=== PATIENT | female | born 1950 | race Caucasian/White ===

== ENCOUNTER 2023-09-29 11:54 | Inpatient (IN) | payer MEDICARE, SELFPAY ==
--- NOTE | ~2023-09-29 | XR_ITS ---
EXAMINATION: XR HIP, LEFT WITH AP PELVIS CLINICAL INFORMATION: Left hip pain COMPARISON: None available. TECHNIQUE: Two views of the left hip. AP view of the pelvis FINDINGS: Femoral heads are well-seated in the respected acetabula. Hip joint spaces are preserved. No evidence of subarticular sclerosis and cystic changes. Symphysis pubis is intact. Sacroiliac joints are unremarkable. No suspicious lytic or blastic osseous lesions are seen. There is no evidence of acute fracture or dislocation in the pelvis and left hip. A 4.3 cm large amorphous calcification is noted in the upper pelvis, to the right of the midline most likely representing calcified fibroid. Lower lumbar spondylosis. XR/XR hip LT w PEL1V IMPRESSION: There is no evidence of acute fracture or dislocation in the pelvis and left hip. No significant degenerative/arthritic changes are noted at the hip joints.
[2023-09-29] MEDS: OLANZapine ODT 10 MG TAB.RAPDIS 20 MG TRANSLINGU (12:25)
[2023-09-29] MEDS: LORazepam 2 MG/ML VIAL IM (12:47)
[2023-09-29 12:50] VITALS: BP 127/101; PULSE 114; RESP 28; TEMP 36.5; O2SAT 99
[2023-09-29 13:05] VITALS: BP 108/82; PULSE 75; RESP 24; TEMP 2.4; TEMP 36.4; O2SAT 97
[2023-09-29 13:20] VITALS: BP 108/64; PULSE 60; RESP 30; TEMP 36.3; O2SAT 97
[2023-09-29 13:35] VITALS: BP 115/58; PULSE 62; RESP 36; TEMP 36.2; O2SAT 97
--- NOTE | 2023-09-29 13:58 | HO.PM.IMCN ---
History of Present Illness Data of Consult Service Date: 09/29/23 Requesting physician: Homer Hough Primary Care Provider: Keyana YADAV Reason for consult: medical H&P 73 year old female with history of htn, hld admitted to [facility] from [facility] ED with consult placed to hospitalist service for medical H&P. Pt seen in exam room with nursing staff. She is noted to be quite aggitated, trashing and disoriented. She is not answering questions. While in the ED, work up was performed to rule out medical causes of acute delerium. Head ct negative for acute intracranial abnormalality, CTA head/neck negative for LVO or hemodynamically significant stenosis> CXr negative for focal consolidation. EKG shows sinus tach, rate 103, with incomplete RBBB, non specific t wave abnormality and borderline qtc at 490. Multiple UA collections negative for infection. VBG negative for any hypercapnia that could be contributing to ams. Renal function and lytes normal. Mild leukocytosis 11 but no apparent source of infection. There have been no fevers, chills, nausea, vomiting, diarrhea reported. Per staff she was recently at assisted living where medications changes did take place including increase in zoloft dose and discontinuation of metoprolol due to bradycardia. Review of Systems Review of Systems: Yes Unobtainable due to mental status PMFSH Medical History (Updated 09/29/23 @ 14:07 by DESI Rosenbaum) HLD (hyperlipidemia) HTN (hypertension) Social History Advance Directives: No Advance Directives Information Provided: No Meds Allergies Allergy/AdvReac Type Severity Reaction Status Date / Time Unable to Assess Allergy Unverified 09/29/23 12:17 Active Medications: Current Medications Acetaminophen (Acetaminophen 325 Mg Tablet) 650 mg PO Q6H PRN PRN Reason: Headache/Pain Mild Scale (1-3) Al Hydroxide/Mg Hydroxide (Magnesium Hydrox/Alum Hydrox 30 Ml Oral.Susp) 30 ml PO Q6H PRN PRN Reason: Heartburn/Nausea Hydroxyzine HCl (Hydroxyzine Hcl 25 Mg Tablet) 25 mg PO Q6H PRN PRN Reason: Anxiety Magnesium Hydroxide (Milk Of Magnesia 30 Ml Oral.Susp) 30 ml PO DAILY PRN PRN Reason: Constipation Trazodone HCl (Trazodone Hcl 50 Mg Tablet) 50 mg PO BEDTIME MRX1 PRN PRN Reason: Insomnia Physical Exam Vital Signs and Narrative: Vital Signs: Last Vital Signs Temp 97.7 F 09/29/23 12:50 Pulse 114 H 09/29/23 12:50 Resp 28 H 09/29/23 12:50 BP 127/101 H 09/29/23 12:50 Pulse Ox 99 09/29/23 12:50 O2 Del Method Room Air 09/29/23 12:50 Constitutional - Awake and Alert, significant aggitation Eyes - PERRLA Cardiovascular - S1S2, RRR, No edema Respiratory - Normal lung expansion, CTA bilaterally Gastrointestinal - soft, ND; No rebound or guarding Extremities - no calf swelling Skin - Warm/Dry Neurological - Alert & disoriented, aggitated. Unable to follow commands or participate in further neuro exam Unable to complete physical examination due to patient agitation/aggression Assessment and Plan (1) Routine medical exam: Status: Acute Plan 73 year old female with history of htn, hld admitted to [facility] from [facility] ED with consult placed to hospitalist service for medical H&P. #Aggitation/psychosis -Reviewed ED records. There does not appear to be any evidence of infection, metabolic disturbance that would be contributing to any reversible medical condition that would account for patient's mental status -home meds reflect donepazil, has degree of underlying dementia -plan per psychiatry #HTN -metoprolol recently discontinued due to bradycardia -blood pressure elevated likely due to acute psychosis/agitation -if blood pressure remains elevated >140/90, recommend initiating amlodipine 5mg daily ED records reviewed. Unable to complete physical examination due to patient agitation. Thank you for allowing me to participate in this consult. Signing off at this time. Please do not hesitate to call for further questions or for any acute medical questions/concerns.
--- NOTE | 2023-09-29 15:22 | PC.ADMIT ---
Addendum entered by Keyana Lackey RN 09/29/23 19:11: Patient is 73 years old. Original Note: 74 year old white female was admitted to room S1 176 from [facility] via stretcher at 1210 today for Dementia with Behavioral Disturbances per 12b. On arrival she was nonsensical, agitated, striking out at staff, kicking and uncooperative. She was picking at her skin. She was offered foods, fluids and toileting. We put on soft music. She took Zyprexa Zydis 20mg PO x1 per order of Dr. Hough but spit out the Ativan and was given it as a chemical restraint 2mg IM at 1247 per order. She was held for one minute during the restraint administration. Her vitals were 127/101, 114,28,36.5 and O2 Sat 99% on room air. She is oriented to person only at times. Her vital remained stable. She continued to have auditory and visual hallucinations throughout the admission process and was unable to answer any questions correctly. We were unable to weigh her or get information, consent for the Flu vaccine,if the patient smoked, has smoked and or vaped in the past. She refused to stand or transfer to a wheel chair, so she was transferred to the bed with a 2 person assist. She is unable to make her needs known. Medications verified with Dr. Hough and patient was seen by hospitalist Susan WEEKS. She is asleep in bed at this time.
--- NOTE | 2023-09-29 16:28 | PC.NURSE ---
Attempted to reach pt's brother Wallace Simms ( [facility] [phone]) and left VM asking he call us back on S1
--- NOTE | 2023-09-29 16:53 | PCS.ADM ---
Addendum entered by Rocio Russo RN 09/29/23 18:33: Nael was notified of Ativan 2 mg IM administered due to extreme agitation. He was able to inform TW of some of her meal/beverage preferences. He's been given the phone number to S1 and will check in with pt status tomorrow Original Note: TW spoke with pt's brother Nael Simms at [phone]) who is one of her HCP and primary emergency contact. He was updated about her transfer here to [facility], overall status, and need for IM medication for restraint due to increased agitation, combative.
--- NOTE | 2023-09-29 17:58 | PC.NURSE ---
Patient's brother Nael stated she likes apple juice and chocolate milk, and medication crushed up in ice cream. She should wear her top dentures when eating which are in her belongings. Her bottom dentures were misplaced at a previous facility.
--- NOTE | 2023-09-30 06:41 | P.HPPS_ITS ---
HPI Date of Service: 09/30/23 Chief Complaint: F03.90 Dementia unspecified F41.9 Unspecified anxi Sources of Information: patient interviewed, chart reviewed and crisis/core team assessment reviewed HPI Subjective Notes: [place] Warning and Section 12B Narrative: The patient is a 73-year-old female transferred from [facility] for continuation of care. According to the crisis assessment, the patient was brought from her home to the emergency room of [facility] since she was hypotensive. The patient carries a diagnosis of dementia and hypertension and she was on metoprolol at certain point her pulse was below 45 and an accidental overdose of metoprolol was suspected. She was initially medically admitted, medically cleared and assessed by crisis since the patient was confused with episodes of agitation. She was presented to our team and transferred here for continuation of care. While we did the doctor to doctor communication, the doctor of [facility] reported that Psychiatry was involved in that facility and they suggested Seroquel 25 mg p.o. t.i.d. to target psychosis and restlessness and p.r.n. Zyprexa. Metoprolol was discontinued. The patient was transferred to this facility by ambulance and on admission the patient was severely confused agitated unable to provide any details and refusing to cooperate. It needed 6 staff members to transfer her to the unit. The patient was very agitated she needed to be chemically restrain with Zyprexa p.o. and Ativan IM. The patient was a very poor historian unable to provide any details confused. The initial medical team assessed her and he was medically cleared. We will try to gather more collateral information since the patient is a very poor historian unable to provide any details. We kept her on Seroquel 25 p.o. t.i.d. and Zyprexa Zydis p.r.n. agitation. Past Psychiatric History: Unknown apparently the patient carries a diagnosis of dementia no evidence of prior psychiatric admissions. Medical Evaluation Reviewed: Yes [facility] Medical History HLD (hyperlipidemia) HTN (hypertension) Family History: Unknown Social History: Unknown, according to the crisis assessment there was no information regarding her social environment. Substance History: Unknown Trauma History: Unknown Diagnostics Vital Signs (24Hr): Vital Signs - 24 hr 09/29/23 12:50 09/29/23 13:05 Temperature 97.7 F 36.4 F L Pulse Rate 114 H 75 Respiratory Rate 28 H 24 H Blood Pressure 127/101 H 108/82 Pulse Oximetry 99 97 Oxygen Delivery Method Room Air Room Air Meds/Allergies Meds Home Medications Medication Instructions Recorded Confirmed Type aspirin 81 mg PO 1XD 09/29/23 09/29/23 History Allergies Allergies Allergy/AdvReac Type Severity Reaction Status Date / Time Unable to Assess Allergy Unverified 09/29/23 12:17 Mental Status Exam Mental Status Exam Patient Appearance: Appropriate and Unkempt (Wearing a diaper with hospital attire.) Patient Orientation: Person Level of Consciousness: Restless and Inappropriate Patient Behavior: Guarded, Aggressive and Restless Mood Description: Hostile Affect Description: Labile Patient Cognition Impaired: Yes Ability to Follow Directions: Poor Speech Pattern: Impoverished and Monotone Hallucinations: None Delusions: Ideas of Reference Thought Process: Incoherent, Illogical and Distracted Thought Content: positive for Poverty of Content, positive for Loose Associations and positive for Thought Blocking Judgement: Poor Assessment & Plan Assessment & Plan (1) Dementia: Status: Acute Code(s): F03.90 - Unspecified dementia, unspecified severity, without behavioral disturbance, psychotic disturbance, mood disturbance, and anxiety Plan The patient is an elderly female with a past history of high blood pressure who was presented to another hospital for hypotension, initially medically cleared and transferring to this facility due to agitation and inability to function in the community. She is a very poor historian unable to provide any details and she needed to be chemically restrain on admission. Plan 1. Gather collateral information. 2. One-to-one observation due to agitation and change in mental status. 3. Continue Seroquel 25 p.o. t.i.d.. 4. Keep Zyprexa Zydis p.r.n. agitation. 5. Continue medical workout. Patient educated on: diagnosis, therapeutic strategies and medical condition Reason for continued inpatient stay Substantial Risk for: inability to function, rapid decompensation and med/psych decompensation Statement Statement: I have reviewed the history and physical and performed a pertinent examination on my patient. No changes have occurred unless specified. If the History and Physical was not performed prior to admission, the Hospitalist's service will be consulted for completing the admission physical. Time Spent With Patient Time: Total time managing care of this patient today _45___ minutes.
[2023-09-30 08:58] VITALS: BP 133/69; PULSE 55; RESP 17; TEMP 36.3; O2SAT 98
[2023-09-30] MEDS: QUEtiapine Fumarate 25 MG TABLET PO ×3 (09:01→21:28)
[2023-09-30] MEDS: OLANZapine ODT 10 MG TAB.RAPDIS 5 MG TRANSLINGU ×2 (09:12→21:28)
[2023-09-30 12:27] LABS: Alanine Aminotransferase 14 U/L (0-31); Albumin Level 4.3 g/dL (3.5-5.0); Alkaline Phosphatase 99 U/L (39-117); Anion Gap 14 (12-20); Aspartate Amino Transferase 20 U/L (5-31); Bilirubin Total 0.6 mg/dL (0.0-1.0); Blood Urea Nitrogen 32 mg/dL (9-16); Carbon Dioxide 20 mmol/L (22-29); Chloride 111 mmol/L (96-108); Cholesterol 253 mg/dL (<200); Estimated Glomerular Filt Rate > 60; Glucose Fasting 82 mg/dL (60-99); HDL Cholesterol 46 mg/dL (>40); LDL Cholesterol Calculated 184 mg/dL (<100); Potassium 4.3 mmol/L (3.3-5.1); Sodium 141 mmol/L (135-145); Total Protein 7.7 g/dL (6.5-8.0); Triglycerides 116 mg/dL (<150)
--- NOTE | 2023-09-30 12:33 | PC.NURSE ---
Pt was full assist with lunch. Still agitated and confused, not able to follow directions or answer appropriately. She declined dentures and pushed staff away. She agreed to have a few bites of applesauce and mac and cheese. Will update diet to pureed. According to pt's brother Nael, while Pat was in assisted living facility, she was mobile and eating/drinking all sorts of things, and when her mental status declined was taken to [facility] and she hasn't returned to her baseline pre hospital admission. Noticed that Pat seems to have pain upon touch to BLE and left leg noted to be internally rotated. Notified Dr Hough of this and awaiting response. Per brother Nael, pt has no known hx of hip fractures.
[2023-09-30] MEDS: LORazepam 1 MG TABLET 2 MG PO (14:19)
--- NOTE | 2023-09-30 14:42 | PC.NURSE ---
Patient remains nonsensical , hallucinating, fearful and tearful this morning. She flinches when we touch her left hip/leg during care. Her left leg is internally rotated, no redness or swelling. When patient is repositioned she winces in pain. She guards her left side. Son Nael updated and he said that she does not have any history as far as he knows about any hip problems. Dr. Hough updated and new orders obtained for X ray of left hip and pelvis and to give Ativan 2mg PO prior to X Ray for anxiety. Medication given.
--- NOTE | 2023-09-30 16:01 | PC.NURSE ---
X rays left hip and pelvis taken, results pending.
--- NOTE | 2023-09-30 16:20 | PC.NURSE ---
Pt medicated with ativan 2 mg orally once prior to having her left hip xray. She is more calm and less agitated. Speech is more clear that yesterday but still confused and nonsensical. Providing pericare and nourishment for her as she is bed bound at this time.
--- NOTE | 2023-09-30 16:41 | PC.NURSE ---
Left hip and pelvic X rays were negative.
--- NOTE | 2023-09-30 16:51 | PC.NURSE ---
Patient would not allow staff to put in her dentures and had difficulty eating regular food. She spit out ground up turkey meat loaf and mac and cheese. Dr Hough updated and diet changed to puree for the time being.
[2023-09-30 18:00] VITALS: BP 116/72; PULSE 72; RESP 18; TEMP 36.6; O2SAT 72
[2023-09-30] MEDS: traZODone HCL 50 MG TABLET PO (21:27)
[2023-09-30] MEDS: hydrOXYzine HCL 25 MG TABLET PO (21:28)
[2023-10-01 06:00] VITALS: RESP 20
--- NOTE | 2023-10-01 09:16 | PC.NURSE ---
Patient's brother/HCP, Nael Simms, phone number is [phone].
--- NOTE | 2023-10-01 14:52 | PM.EVENT ---
Event Note Date of Service: 10/01/23 Event Note: Pt remains aggitated, disoriented, aggressive. Has not been eating or drinking. Concern for cyanosis and hypoxia per nursing. Pt is not cyanotic on my exam. Radial pulses weak but palpable. Difficult to get accurate pulse ox- briefly reading 93% then 89% then not reading. Suspect hypoperfusion due to poor PO intake. Do not suspect hypoxia. No cyanosis. No increased WOB. Respirations are even and unlabored. Extremities are warm. Mucosa dry. Suspect terminal dementia after discussion with psychiatrist. However, pt is full code with family coming to facility tomorrow to discuss code status/MOLST. Will transfer to medical floor for full work up to rule out reversible causes of delerium/FTT prior to advanced care planning discussion with family tomorrow. Discussed with psychiatrist who will initiate discharge process. Time Spent With Patient Time: Total time managing care of this patient today ____ minutes.
--- NOTE | 2023-10-01 15:00 | PM.PSYDC ---
DS: Providers Provider Date of Service: 10/01/23 Date of admission: 09/29/23 11:54 Date of discharge: 10/01/23 Primary care physician: Keyana Laguerre NP Consults: 09/29/23 13:05 Consult to Hospitalist Routine Comment: Consulting Provider: Hospitalist Reason For Exam: Direct admission 10/01/23 12:30 Consult to Hospitalist Stat Comment: Consulting Provider: Hospitalist Reason For Exam: Change of MS, looks terminal agitation DS: Diagnosis Discharge Diagnosis (1) Dementia: Status: Acute DS: Medications Discharge Medications Home Medications: Home Medications Medication Instructions Recorded Confirmed aspirin 81 mg PO 1XD 09/29/23 09/29/23 Mental Status Exam Mental Status Exam Patient Appearance: Unkempt and Bizarre Patient Orientation: Person Level of Consciousness: Awake and Restless Patient Behavior: Guarded, Passive and Belligerent Mood Description: Withdrawn Affect Description: Labile Patient Cognition Impaired: Yes Ability to Follow Directions: Poor Speech Pattern: Impoverished and Monotone Hallucinations: Auditory Delusions: Paranoid Ideation and Ideas of Reference Thought Process: Illogical Thought Content: positive for [place] and positive for Loose Associations Judgement: Poor Data Data Completed and Pending Completed studies during hospitalization [Text1]: 09/30/23 07:14 Hold Purple Top SEE NOTE Sodium 141 Potassium 4.3 Chloride 111 H Carbon Dioxide 20 L Anion Gap 14 BUN 32 H Creatinine 0.77 Estim Creat Clear Calc TNP Estimated GFR > 60 Fasting Glucose 82 Calcium 10.0 Total Bilirubin 0.6 AST 20 ALT 14 Alkaline Phosphatase 99 Total Protein 7.7 Albumin 4.3 Triglycerides 116 Cholesterol 253 H LDL Cholesterol, Calc 184 H HDL Cholesterol 46 Imaging Diagnostic Imaging Impressions Hip/Pelvis X-Ray 09/30/23 15:15 IMPRESSION: There is no evidence of acute fracture or dislocation in the pelvis and left hip. No significant degenerative/arthritic changes are noted at the hip joints. DS: Summary Hospital Course Hospital Course: The patient is a 73-year-old female with a past history of dementia was brought from [facility] after being medically cleared since she was bradycardic. On admission the patient came very agitated, completely nonsensical unable to be redirected that need to be chemically restrained to be transferred from the stretcher to her bed. On admission, we consulted Medicine and checked on her. The patient had being having very poor p.o. intake while she was in the unit she got more agitated and anxious and they were pleased that she was desaturating. We consulted Medicine and they decided to transfer her to Medicine for a fully workout. At this point the patient is full code as per the desires of her family. The medical team requested the transferred to Medicine for a full workout. Time spent discussing smoking cessation with patient: 3 to 10 minutes Status at Discharge Cognitive/behavioral status at discharge: Cognition very impaired Functional status at discharge: bed bound Overall status at discharge: patient is not back to baseline Time Spent with Patient Time attestation: Total time managing care of this patient today _30___ minutes. Time spent: Less than 30 minutes Discharge Plan Discharge Anticipated Discharge Date/Time: 10/01/23 15:03 Patient Disposition: [facility] Hospital Discharge Diagnosis: Delirium Dementia Referrals: Keyana Laguerre, [employer] [Primary Care Provider] - 1 Week Discharge Medications: Discontinued aspirin 81 mg PO 1XD Discharge Orders: Discharge Order (Routine); Ordered 10/01/23 Ordered By: Homer Hough Diet: Advance to usual diet Activity on Discharge: As tolerated Stand Alone Forms: Patient Portal Discharge page Care Plan Goals: Care plan goals have not been achieved since the patient had been transferred to Medicine Health Concerns: Transferred to the medical floor. Plan of Treatment: Continue treatment on the medical floor when she is medically cleared she would be transfer back to Psychiatry. Assessment: The patient is an elderly female with a past history of dementia and bradycardia transferred from [facility] for continuation of care. The patient decompensated medically with poor p.o. intake that his rotated very agitated transferred to Medicine for medical treatment.
== END 2023-10-01 17:58 | disposition short-term general hospital (02) | DRG 884 ==
PROVIDERS: Admitting Provider Psychiatry & Neurology Psychiatry; PCP Nurse Practitioner Family; Visit Provider Psychiatry & Neurology Psychiatry
DX: F03.911 Unspecified dementia, unspecified severity, with agitation (principal); F05 Delirium due to known physiological condition; E78.5 Hyperlipidemia, unspecified; I10 Essential (primary) hypertension; Z79.899 Other long term (current) drug therapy
CPT/HCPCS: 36415; 73502; 80053; 80061; J2060

== ENCOUNTER → 2023-09-29 11:54 | Outpatient (BNV) | payer MEDICARE, SELFPAY | PROVIDERS: Admitting Provider Psychiatry & Neurology Psychiatry; Visit Provider Psychiatry & Neurology Psychiatry | DX: F03.90 Unspecified dementia, unspecified severity, without behavioral disturbance, psychotic disturbance, mood disturbance, and anxiety (principal) | CPT/HCPCS: 99222; 99238 ==

== ENCOUNTER → 2023-09-29 11:54 | Outpatient (BNV) | payer MEDICARE, SELFPAY | PROVIDERS: Admitting Provider Psychiatry & Neurology Psychiatry; Visit Provider Physician Assistant | DX: Z02.2 Encounter for examination for admission to residential institution (principal) | CPT/HCPCS: 99429; 99499 ==

== ENCOUNTER 2023-10-01 18:01 | Inpatient (IN) | payer MEDICARE, SELFPAY ==
--- NOTE | ~2023-10-01 | CT_ITS ---
EXAMINATION: CT ANGIOGRAM OF THE CHEST WITH AND WITHOUT CONTRAST (CT PULMONARY ANGIOGRAM FOR PE) CLINICAL INFORMATION: Reason for Exam hypoxia, encephalopathy. r/o pe/pneumonia COMPARISON: None available. TECHNIQUE: Prior to contrast administration, noncontrast localization images were obtained. Subsequently, multidetector volumetric imaging was performed from the thoracic inlet to below the diaphragms following the administration of 25 mL Omnipaque 350 intravenous contrast. No contrast reaction reported Sagittal, coronal, and MIP oblique sagittal reformatted images were obtained on the CT workstation, uploaded to PACS, and reviewed. This CT examination was performed using dose optimization techniques as appropriate, variously including the following: *Automated exposure control *Adjustment of mA and/or kV according to patient size (this includes techniques or standardized protocols for targeted exams where dose is matched to indication/reason for exam; i.e. extremities or head) *Use of iterative reconstruction technique Total exam dose-length product 227 mGy-cm FINDINGS: QUALITY OF STUDY/CONTRAST BOLUS: Satisfactory. PULMONARY ARTERIES: No pulmonary emboli. THORACIC AORTA: No aneurysm. LUNG: Evaluation of the lungs is limited due to respiratory motion artifact. No focal consolidation, nodules or masses. PLEURA: No pleural effusion or pneumothorax. MEDIASTINUM: Lightly enlarged heart size. No pericardial effusion. No hilar or mediastinal lymphadenopathy. No evidence of septal bowing or right heart strain. CORONARY ARTERY CALCIFICATION: Mild CHEST WALL/AXILLA: No axillary or internal mammary lymphadenopathy. OSSEOUS STRUCTURES: Degenerative changes of the spine and shoulders. UPPER ABDOMEN: No reflux of contrast into the hepatic veins to suggest elevated right heart pressures. CT/CT angio chest PE protocol IMPRESSION: No evidence of pulmonary embolus. VTE: negative
--- NOTE | ~2023-10-01 | CT_ITS ---
EXAMINATION: CT ABDOMEN AND PELVIS WITHOUT CONTRAST CLINICAL INFORMATION: Failure to thrive, encephalopathy and anorexia COMPARISON: None available. TECHNIQUE: Multidetector volumetric imaging was performed from the superior aspect of the liver through the pubic symphysis. Sagittal and coronal reformatted images were obtained on the technologist's workstation. This CT examination was performed using dose optimization techniques as appropriate, variously including the following: *Automated exposure control *Adjustment of mA and/or kV according to patient size (this includes techniques or standardized protocols for targeted exams where dose is matched to indication/reason for exam; i.e. extremities or head) *Use of iterative reconstruction technique DLP: 521 mGy-cm FINDINGS: LIVER, GALLBLADDER, AND BILIARY TREE: The liver is normal in size, shape, and attenuation. No focal hepatic lesion or biliary ductal dilatation is present. The gallbladder is unremarkable with no evidence of radiopaque gallstones, gallbladder wall thickening, or obvious pericholecystic inflammatory changes. PANCREAS: Unremarkable. SPLEEN: Unremarkable. ADRENAL GLANDS: Unremarkable. KIDNEYS AND URETERS: The kidneys are normal in size, shape, and attenuation. No hydronephrosis, hydroureter. Small bilateral nonobstructing renal stones. No perinephric stranding. BLADDER: Unremarkable. GASTROINTESTINAL TRACT: Mild constipation diverticulosis. The small and large bowel are otherwise unremarkable. There may be mild wall thickening of the proximal stomach. The appendix is unremarkable. ABDOMINAL WALL: No significant hernia is appreciated. LYMPH NODES: Normal. VASCULAR: Unremarkable. PELVIC VISCERA: Large calcified fibroid in the uterus. OSSEOUS STRUCTURES: Degenerative changes of the spine. CT/CT abdomen pelvis wo IV con IMPRESSION: No acute findings. Mild constipation and diverticulosis. Large uterine calcification probably representing a fibroid. Small nonobstructing bilateral renal stones. Question mild fold thickening of the proximal stomach. Fleischner guidelines were followed.
--- NOTE | ~2023-10-01 | CT_ITS ---
EXAMINATION: CT head/brain wo IV con CLINICAL INFORMATION: Reason for Exam encephalopathy, ftt COMPARISON: None. TECHNIQUE: Contiguous axial imaging was performed from the skull base to vertex without intravenous contrast. Sagittal and coronal reformatted images were obtained. This CT examination was performed using dose optimization techniques as appropriate, variously including the following: * Automated exposure control * Adjustment of mA and/or kV according to patient size (this includes techniques or standardized protocols for targeted exams where dose is matched to indication/reason for exam; i.e. extremities or head) Use of iterative reconstruction technique DLP: 1904.23 mGy-cm FINDINGS: Motion degraded examination. No acute osseous or soft tissue abnormality. The mastoid air cells and visualized portions of the paranasal sinuses are well aerated. There is no evidence of acute intracranial hemorrhage or territorial infarction. No abnormal mass effect or midline shift is seen. Mathias to white matter differentiation is well preserved. No extra-axial fluid collections are identified. No hydrocephalus. Proportional prominence of the ventricles and sulcal spaces is consistent with mild volume loss. Patchy periventricular and deep white matter hypoattenuation is consistent with mild small vessel ischemic changes. CT/CT head/brain wo IV con IMPRESSION: Motion degraded examination. Within limitations of motion artifact, no evidence of acute intracranial abnormality including hemorrhage, mass effect, hydrocephalus, or acute territorial edematous infarction. If there is persistent clinical concern for acute [employer] pathology, consider repeat CT or MRI.
--- NOTE | 2023-10-01 17:04 | P.HPHOSP_ITS ---
History of Present Illness Date of Service: 10/01/23 Attending physician on admission: Mitchell Mccord Chief Complaint: ftt, encephalopathy 73 year old female with history of htn, hld admitted to [facility] from [facility] ED due to aggitation and delerium. While in the ED, work up was performed to rule out medical causes of acute delerium. Head ct negative for acute intracranial abnormalality, CTA head/neck negative for LVO or hemodynamically significant stenosis> CXr negative for focal consolidation. EKG shows sinus tach, rate 103, with incomplete RBBB, non specific t wave abnormality and borderline qtc at 490. Multiple UA collections negative for infection. VBG negative for any hypercapnia that could be contributing to ams. Renal function and lytes normal. Since arrival to the unit, patient has continued to decline. Has not been eating or drinking per nursing report. Has been refusing medications. Has required chemical restraint due to agitation and aggression towards staff. Seen in consult by this provider on 09/28 and again today without any change in clinical presentation. Vital signs since arrival were significant for intermittent tachypnea, though has not been tachypneic in over 24 hours and breathing on exam is noted to be unlabored. Nursing reported hypoxia of 72% on RA last night and then this morning oximetry was not able to be accurately read. On exam briefly obtained sat of 93% then 89% but otherwise was not reading. Radial pulses noted to be weak but equal. Extremities warm. No cyanosis observed. O2 sats until yesterday evening 97%. Discussed with psychiatrist who questions terminal dementia. He does report that prior to arrival to [facility] patient was ambulatory though has had underlying dementia. She will be transferred to the medical floor for further evaluation of any reversible medical causes leading to acute delerium though again these had not been identified during [facility] evaluation and presentation has not changed, vs terminal dementia and further discussion/advanced care planning with family. Review of Systems Review of Systems: Yes Unobtainable due to mental status [facility] Medical History (Updated 10/01/23 @ 17:46 by DESI Rosenbaum) Dementia HLD (hyperlipidemia) HTN (hypertension) Social History Household Members: Other Housing: Assisted Living Facility Do you presently have visiting nurse or other home services: No Comment: PT on 1:1 Patient Tobacco Use Status: Tobacco use Unknown service: No Sexual orientation: Straight/Heterosexual Meds Allergies Allergy/AdvReac Type Severity Reaction Status Date / Time Unable to Assess Allergy Unverified 09/29/23 12:17 Active Medications: Current Medications Acetaminophen (Acetaminophen 325 Mg Tablet) 650 mg PO Q6H PRN PRN Reason: Pain, Mild (Pain Scale 1-3) Heparin Sodium (Porcine) (Heparin Sodium,Porcine 5,000 Unit/Ml Vial) 5,000 unit SUBCUT Q12H [facility] Sodium Chloride (Ns) 1,000 mls @ 100 mls/hr IVCONT .Q10H [facility] Sodium Chloride (Ns) 1,000 mls @ 999 mls/hr IV .Q1H1M [facility] Stop: 10/01/23 18:00 Ondansetron HCl (Ondansetron Hcl 4 Mg/2 Ml Vial) 4 mg IVPUSH Q8H PRN PRN Reason: Nausea and Vomiting Senna (Sennosides 8.6 Mg Tablet) 17.2 mg PO BEDTIME PRN PRN Reason: Constipation Sodium Chloride (0.9 % Sodium Chloride Flush 3 Ml Syringe) 3 ml IVFLUSH QSHIFT [facility] Physical Exam Vital Signs and Narrative: Constitutional - Awake and Alert, disoriented, aggitated/anxious appearing, attempting to hit staff Eyes - PERRLA Cardiovascular - S1S2, RRR, No edema Respiratory - Normal lung expansion, Normal respiratory effort, No respiratory distress, CTA bilaterally Gastrointestinal - soft, ND; +BS; No rebound or guarding Extremities - no calf tenderness bilaterally, no swelling Musculoskeletal - Normal inspection, normal ROM Skin - Warm/Dry Neurological - Alert & disoriented, aggitatied/anxious, unable to assess cranial nerves except PERRLA and EOMs appear to be in tact with patient's eyes tracking around room. Strength is symmetric and in tact Assessment and Plan (1) Encephalopathy: Status: Acute (2) Failure to thrive in adult: Status: Acute (3) Dementia: Status: Acute Plan 73 year old female with history of htn, hld admitted to [facility] from [facility] ED due to aggitation and delerium with work up negative for reversible medical causes of delerium. She continues to decline, not eating or drinking and continues to exhibit aggression/agitation related psychosis. 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 However, pt will be admitted to hospitalist service for further investigation into any reversible causes of acute delerium and ultiamtely advanced care planning with family if no reversible cause is identified. #Acute metabolic encephalopathy- likely related to psychosis/terminal dementia -r/o infection/metabolic derangements that could be contributing to acute aggitation/confusion -Head CT, CTA chest, CT abd/pelvis ordered. b/l hip xray negative for fracture -Check CBC, CMP, ammonia, TSH w/ reflex free t4, UA/UC with straight cath (follow 1L IV NS bolus), VBG. Will also check trop, BNP given documented hypoxia -Admit to m/s with sitter -monitor mentation #?Hypoxia -Radial pulses weak but extremities warm without any cyanosis. Suspect poor perfusion compromising peripheral pulse oximetry. On exam, oximetry briefly read as 89 and 93% but otherwise ws not recording. There is no respiratory distresss or increased work of breathing. Respirations are even and unlabored -Will keep on continuous pulse oximetry -CTA chest, trop, bnp ordered #Failure to thrive -as above. Nothing to eat or drink in 3 days. pt is full code -will give 1 L bolus IVF, then 100mls/hr -check renal function.lytes. Eval for reversible causes of delerium as above -advanced care planning discussion with family tomorrow #Unspecified advanced dementia -per psychiatry, suspects terminal dementia -continue seroquel 25mg TID and zyprexa 5mg Q4H prn for agitation -monitor mentation #Hypertension -bp reasonably controlled, not on antihypertensive agents dvt prophyalxis0 heparin full code pt requries inpt stay at [facility] 2 midnights due to ftt and encephalopathy requiring further work up for reversible causes of acute delerium vs terminal dementia and will likely require advanced care planning with family Quality Stroke Does the patient have a stroke diagnosis?: No VTE Prior VTE?: No VTE Risk Level:: Medical - moderate - high VTE Device Contraindication: Treatment Not Indicated VTE Drug Contraindication: N/A - Med Ordered
[2023-10-01] MEDS: OLANZapine 10 MG VIAL IM (18:43)
[2023-10-01 18:45] LABS: MANUAL DIFF FLAG NO
[2023-10-01 18:46] LABS: VBG HCO3 22 mmol/L (22-26); VBG pCO2 25 mmHg; VBG pH 7.55 (7.32-7.43); VBG pO2 28 mmHg
[2023-10-01 18:46] LABS: Basophils Absolute Auto 0.1 X10*3/uL (0.0-0.2); Basophils Percent Auto 0.6 % (0-2); Eosinophils Absolute Auto 0.2 X10*3/uL (0.0-0.4); Eosinophils Percent Auto 2.3 % (0-4); Hemoglobin 15.4 g/dl (12.0-16.0); Imm Gran Abs Auto 0.01 X10*3/uL (0.00-0.03); Imm Gran Pct Auto 0.1 % (0.0-0.4); Lymphocytes Absolute Auto 2.5 X10*3/uL (1.2-4.9); Lymphocytes Percent Auto 31.2 % (20-40); Mean Corpuscular HGB Conc 34.2 g/dl (31.0-35.0); Mean Corpuscular Hemoglobin 28.9 pg (27.0-33.0); Mean Corpuscular Volume 84.4 fL (80.0-98.0); Monocytes Absolute Auto 0.7 X10*3/uL (0.1-1.2); Neutrophils Absolute Auto 4.6 x10*3/uL (2.0-8.3); Neutrophils Percent Auto 56.8 % (45-73); Platelet Count 320 X10*3/uL (160-400); Red Blood Count 5.33 X10*6/uL (4.20-5.50); Red Cell Distribution Width 13.6 % (11.0-16.0); White Blood Count 8.1 X10*3/uL (4.8-10.8)
[2023-10-01] MEDS: 0.9 % Sodium Chloride 1,000 ML 999 ML IV (18:46)
[2023-10-01 18:49] VITALS: BMI 19.9
[2023-10-01 18:49] LABS: Venous Blood Gas Refer to POC result
--- NOTE | 2023-10-01 18:49 | PM.EVENT ---
Event Note Date of Service: 10/01/23 Event Note: Pt arrived to M/S very agitated, anxious, crying. Attempting to fight off staff. For patient and staff safety administered 10mg IM zyprexa with good effect to allow for collection of labs, patient comfort and safety, as well as further work up to be completed to rule out reversible medical causes of patient presentation. Discussed with patient's brother, Nael, who will be coming to the hospital from the [address] tomorrow morning. Time Spent With Patient Time: Total time managing care of this patient today ____ minutes.
[2023-10-01 18:51] VITALS: BP 170/80; PULSE 98; RESP 20; TEMP 36.2; O2SAT 95
[2023-10-01 18:56] LABS: Ammonia 17 umol/L (13-55)
[2023-10-01] MEDS: LORazepam 2 MG/ML VIAL 1 MG IVPUSH (19:02)
[2023-10-01 19:08] LABS: Alanine Aminotransferase 14 U/L (0-31); Albumin Level 4.6 g/dL (3.5-5.0); Alkaline Phosphatase 105 U/L (39-117); Anion Gap 18 (12-20); Aspartate Amino Transferase 17 U/L (5-31); Bilirubin Total 1.1 mg/dL (0.0-1.0); Blood Urea Nitrogen 34 mg/dL (9-16); Calcium 10.5 mg/dL (8.4-10.2); Carbon Dioxide 21 mmol/L (22-29); Chloride 112 mmol/L (96-108); Creatinine Clr Calc Pharmacy 57.4; Estimated Glomerular Filt Rate > 60; Glucose Random 103 mg/dL (60-115); Potassium 3.5 mmol/L (3.3-5.1); Sodium 147 mmol/L (135-145); Total Protein 8.2 g/dL (6.5-8.0)
[2023-10-01 19:10] LABS: B Type Natriuretic Peptide < 10 pg/mL (<100); Troponin-I High Sensitivity < 2.7 ng/L (<3.5-17.0)
[2023-10-01 19:22] LABS: TSH reflex Free T4 1.57 uIU/mL (0.32-4.0)
[2023-10-01] MEDS: iohexoL 350 MG/ML 100 ML INFUS..BTL IV (20:35)
[2023-10-01] MEDS: Dextrose 5 % and 0.45 % NaCl 1,000 ML 100 ML IVCONT (20:44)
--- NOTE | 2023-10-01 22:02 | PHA.MEDREC ---
Pharmacy Consult ? Medication Reconciliation Pharmacy has completed the medication reconciliation. Patient from [facility] active meds for med rec. DESI Davis aware Alanis Kat, DianelysD
[2023-10-01 22:52] LABS: Appearance Urine Cloudy; Color Urine Dark Yellow; Glucose Urine UA Negative (Negative); Leukocyte Esterase Urine Negative (Negative); Nitrite Urine Negative (Negative); Specific Gravity - Urine >= 1.030 (1.005-1.025); Urine Blood Negative (Negative); Urine Ketones 15 mg/dL (Negative); Urine Protein Negative (Neg-Trace)
[2023-10-01 23:15] VITALS: BP 140/94; PULSE 72; RESP 16; TEMP 36.4; O2SAT 95
[2023-10-02] MEDS: Dextrose 5 % and 0.45 % NaCl 1,000 ML 100 ML IVCONT ×3 (05:24→23:56)
[2023-10-02] MEDS: Heparin Sodium,Porcine 5,000 UNIT/ML VIAL 5000 UNIT SUBCUT ×2 (05:24→16:41)
[2023-10-02 06:26] LABS: MANUAL DIFF FLAG NO
[2023-10-02 06:34] LABS: Basophils Percent Auto 0.8 % (0-2); Eosinophils Absolute Auto 0.2 X10*3/uL (0.0-0.4); Eosinophils Percent Auto 4.8 % (0-4); Hematocrit 38.7 % (37.0-47.0); Hemoglobin 12.6 g/dl (12.0-16.0); Imm Gran Abs Auto 0.01 X10*3/uL (0.00-0.03); Imm Gran Pct Auto 0.2 % (0.0-0.4); Lymphocytes Absolute Auto 1.6 X10*3/uL (1.2-4.9); Lymphocytes Percent Auto 32.3 % (20-40); Mean Corpuscular HGB Conc 32.6 g/dl (31.0-35.0); Mean Corpuscular Hemoglobin 28.9 pg (27.0-33.0); Mean Corpuscular Volume 88.8 fL (80.0-98.0); Monocytes Absolute Auto 0.5 X10*3/uL (0.1-1.2); Monocytes Percent Auto 9.7 % (2-11); Neutrophils Absolute Auto 2.6 x10*3/uL (2.0-8.3); Neutrophils Percent Auto 52.2 % (45-73); Platelet Count 260 X10*3/uL (160-400); Red Blood Count 4.36 X10*6/uL (4.20-5.50); Red Cell Distribution Width 13.7 % (11.0-16.0)
[2023-10-02 07:03] LABS: Anion Gap 12 (12-20); Blood Urea Nitrogen 26 mg/dL (9-16); Carbon Dioxide 22 mmol/L (22-29); Chloride 113 mmol/L (96-108); Creatinine Clr Calc Pharmacy 61.5; Estimated Glomerular Filt Rate > 60; Glucose Random 115 mg/dL (60-115); Potassium 3.6 mmol/L (3.3-5.1); Sodium 143 mmol/L (135-145)
[2023-10-02 07:15] VITALS: BP 117/69; PULSE 52; RESP 14; TEMP 36; O2SAT 94
[2023-10-02 07:16] LABS: Calcium 8.7 mg/dL (8.4-10.2)
--- NOTE | 2023-10-02 11:38 | MHC.CM.PN ---
Addendum entered by Shavon Richardson 10/02/23 13:57: FAMILY WOULD LIKE REFERRALS CLOSER TO [place] AND FIRST CHOICE IS [facility] IN [place]. Original Note: IMM DELIVERED TO HCP/BROTHER AMELIA AT BEDSIDE. PT UNABLE TO SIGN DUE TO COGNITIVE LOSS/AGITATION. PT IS FROM GP UNIT AT [facility] BUT RESIDES IN A USP IN [place] ([facility]). HCP IS REQUESTING A LTC REFERRAL BE PLACED TO SNF'S IN THE [place]. PT WILL BE USING FUNDS . REQUEST SENT TO [facility] FOR COPY OF HCP. DP: PT WILL REQUIRE LTC AT A FACILITY IN THE [place] . WILL NEED BLS TRANSPORT. CM WILL CONTINUE TO FOLLOW FOR ANY CHANGE IN DC PLAN/NEEDS.
[2023-10-02] MEDS: cefTRIAXone sodium 1 GM in 0.9 % Sodium Chloride 50 ML IV (11:39)
[2023-10-02] MEDS: LORazepam 2 MG/ML VIAL 1 MG IVPUSH ×2 (12:12→18:36)
--- NOTE | 2023-10-02 14:28 | HO.PM.IMPN ---
Subjective Subjective Date of Service: 10/02/23 Interval History: Remains confused; improved with Zyprexa and Ativan Review of Systems Unable to obtain Physical Exam Vital Signs: Vital Signs: Last Vital Signs Temp 96.8 F 10/02/23 07:15 Pulse 52 10/02/23 07:15 Resp 14 10/02/23 07:15 BP 117/69 10/02/23 07:15 Pulse Ox 94 10/02/23 07:15 O2 Del Method Room Air 10/02/23 07:15 BMI result Body Mass Index 19.9 Const: Other: Awake mumbling incoherent Resp: Other: Clear to auscultation bilaterally no rales rhonchi or wheezes Cardio: Other: No S4; positive S1-S2; no S3 murmurs rubs or gallops GI: Other: Soft nontender nondistended normoactive bowel sounds Extrem: Other: No edema bilaterally Objective Data Active Medications Acetaminophen (Acetaminophen 325 Mg Tablet) 650 mg PO Q6H PRN PRN Reason: Pain, Mild (Pain Scale 1-3) Heparin Sodium (Porcine) (Heparin Sodium,Porcine 5,000 Unit/Ml Vial) 5,000 unit SUBCUT Q12H [facility] Last Admin: 10/02/23 05:24 Dose: 5,000 unit Documented By: NAHID Dextrose/Sodium Chloride (D51/2ns) 1,000 mls @ 100 mls/hr IVCONT .Q10H [facility] Last Admin: 10/02/23 14:13 Dose: 100 mls/hr Documented By: CARLOS Ceftriaxone Sodium 1 gm/ (Sodium Chloride) 50 mls @ 100 mls/hr IV Q24H [facility] Last Infusion: 10/02/23 12:11 Dose: Infused Documented By: CARLOS Lorazepam (Lorazepam 2 Mg/Ml Vial) 1 mg IVPUSH Q4H PRN PRN Reason: Restlessness Last Admin: 10/02/23 12:12 Dose: 1 mg Documented By: CARLOS Olanzapine (Olanzapine Odt 10 Mg Tab.Rapdis) 5 mg TRANSLINGU Q4H PRN PRN Reason: Psychosis Ondansetron HCl (Ondansetron Hcl 4 Mg/2 Ml Vial) 4 mg IVPUSH Q8H PRN PRN Reason: Nausea and Vomiting Quetiapine Fumarate (Quetiapine Fumarate 25 Mg Tablet) 25 mg PO TID [facility] Last Admin: 10/02/23 14:03 Dose: Not Given Documented By: CARLOS Non-Admin Reason: Patient Asleep Senna (Sennosides 8.6 Mg Tablet) 17.2 mg PO BEDTIME PRN PRN Reason: Constipation Sodium Chloride (0.9 % Sodium Chloride Flush 3 Ml Syringe) 3 ml IVFLUSH QSHIFT [facility] Last Admin: 10/02/23 12:31 Dose: Not Given Documented By: CARLOS Non-Admin Reason: IV Running Labs 10/02/23 05:23 10/02/23 05:23 Labs: Laboratory Results - last 24 hr 10/01/23 10/01/23 10/01/23 18:38 18:40 22:20 MCV 84.4 MCH 28.9 MCHC 34.2 RDW 13.6 Plt Count 320 MPV 10.0 Immature Gran % (Auto) 0.1 Neut % (Auto) 56.8 Lymph % (Auto) 31.2 [place] % (Auto) 9.0 Eos % (Auto) 2.3 Baso % (Auto) 0.6 Lymph # (Auto) 2.5 [place] # (Auto) 0.7 Eos # (Auto) 0.2 Baso # (Auto) 0.1 Abs Immat Gran (auto) 0.01 Absolute Neuts (auto) 4.6 Absolute Nucleated RBC 0.000 Nucleated RBC % (auto) 0.0 VBG pH 7.55 H VBG pCO2 25 VBG pO2 28 VBG HCO3 22 VBG O2 Saturation 46.0 VBG Base Excess 2.0 Anion Gap 18 Estim Creat Clear Calc 57.4 Estimated GFR > 60 Random Glucose 103 Calcium 10.5 H Total Bilirubin 1.1 H AST 17 ALT 14 Alkaline Phosphatase 105 Ammonia 17 Troponin I High Sens < 2.7 B-Natriuretic Peptide < 10 Total Protein 8.2 H Albumin 4.6 TSH 1.57 Urine Color Dark Yellow Urine Appearance Cloudy Urine pH 7.0 Ur Specific W[place]ord >= 1.030 H Urine Protein Negative Urine Glucose (UA) Negative Urine Ketones 15 Urine Blood Negative Urine Nitrite Negative Ur Leukocyte Esterase Negative 10/02/23 05:23 MCV 88.8 MCH 28.9 MCHC 32.6 RDW 13.7 Plt Count 260 MPV 10.0 Immature Gran % (Auto) 0.2 Neut % (Auto) 52.2 Lymph % (Auto) 32.3 Scre[place] % (Auto) 9.7 Eos % (Auto) 4.8 H Baso % (Auto) 0.8 Lymph # (Auto) 1.6 Screven # (Auto) 0.5 Eos # (Auto) 0.2 Baso # (Auto) 0.0 Abs Immat Gran (auto) 0.01 Absolute Neuts (auto) 2.6 Absolute Nucleated RBC 0.000 Nucleated RBC % (auto) 0.0 VBG pH VBG pCO2 VBG pO2 VBG HCO3 VBG O2 Saturation VBG Base Excess Anion Gap 12 Estim Creat Clear Calc 61.5 Estimated GFR > 60 Random Glucose 115 Calcium 8.7 D Total Bilirubin AST ALT Alkaline Phosphatase Ammonia Troponin I High Sens B-Natriuretic Peptide Total Protein Albumin TSH Urine Color Urine Appearance Urine pH Ur Specific [place]ord Urine Protein Urine Glucose (UA) Urine Ketones Urine Blood Urine Nitrite Ur Leukocyte Esterase Assessment and Plan (1) Dementia: Status: Acute (2) Failure to thrive in adult: Status: Acute (3) HTN (hypertension): Status: Acute Plan 73 year old female with history of htn, hld admitted to [facility] from [facility] ED due to aggitation and delerium with work up negative for reversible medical causes of delerium. She continues to decline, not eating or drinking and continues to exhibit aggression/agitation related psychosis. 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 However, pt will be admitted to hospitalist service for further investigation into any reversible causes of acute delerium and ultiamtely advanced care planning with family if no reversible cause is identified. 1. Dementia with agitated behavior -extensive workup failed to demonstrate any acute cause for this behavior -question underlying UTI; discussed with family will treat with empiric ceftriaxone and monitor clinically. Will obtain urine if patient able to produce. Would not straight cath as this would be extremely traumatic for patient 2.Hypoxia -likely secondary to poor waveform -workup unremarkable 3.Failure to thrive -secondary to end-stage dementia with agitated behavior -discussed at length with family; patient made DNR DNI at this time -will start bed search for long-term care facility closer to their home and fell mouth 4.Unspecified advanced dementia -per psychiatry, suspects terminal dementia -continue seroquel 25mg TID/Zyprexa 10mg daily -Ativan IV p.r.n. 5.Hypertension -bp reasonably controlled-not on antihypertensive agents -no aggressive therapy as family moving towards comfort measures dvt prophyalxis0 heparin full code Patient requires ongoing hospitalization to facilitate safe placement Quality Stroke Does the patient have a stroke diagnosis?: No VTE Prior VTE?: No VTE Risk Level:: Medical - moderate - high VTE Device Contraindication: Treatment Not Indicated VTE Drug Contraindication: N/A - Med Ordered
[2023-10-02 15:40] VITALS: BP 122/64; PULSE 80; RESP 17; TEMP 36; O2SAT 95
[2023-10-02 23:37] VITALS: BP 150/74; PULSE 77; RESP 18; TEMP 36.2; O2SAT 98
[2023-10-03] MEDS: Heparin Sodium,Porcine 5,000 UNIT/ML VIAL 5000 UNIT SUBCUT (05:46)
[2023-10-03 07:12] VITALS: BP 139/79; PULSE 71; RESP 14; TEMP 36; O2SAT 98
--- NOTE | 2023-10-03 08:10 | P.CDIM_ITS ---
PROVIDER RESPONSE TEXT: To clarify, the appropriate diagnosis supported by the clinical indicators: Hypernatremia QUERY TEXT: PHYSICIAN'S DOCUMENTATION REQUEST Date of Query: 10/03/2023 07:57 AM EDT Patient Name: Crystal Simms Admit Date: 10/01/2023 Dear Mitchell Mccord, A review of the medical record indicates additional documentation may be needed. Please review below and update the documentation accordingly. Clinical Indicators: LAB FINDINGS: sodium 147 H Fluids Based on the above, is there a diagnosis that correlates with the above labs: Hypernatremia Labs indicate a diagnosis of (please specify) Other (explain) Clinically unable to determine (explain) Thank you, Deepthi Elkins, CCS, CDIS Use of terms such as suspected, likely, concern for, or probable (associated with a specific diagnosi s that is being evaluated, monitored, or treated as if it exists) are acceptable and can be coded in the inpatient se tting, when documented at the time of discharge. Please use your independent medical judgment in providing your response. THIS QUERY IS PART OF THE PERMANENT MEDICAL RECORD
[2023-10-03] MEDS: Dextrose 5 % and 0.45 % NaCl 1,000 ML 100 ML IVCONT ×2 (09:36→17:15)
[2023-10-03] MEDS: cefTRIAXone sodium 1 GM in 0.9 % Sodium Chloride 50 ML IV (11:44)
--- NOTE | 2023-10-03 12:31 | P.CDIM_ITS ---
PROVIDER RESPONSE TEXT: To clarify, the appropriate diagnosis supported by the clinical indicators: Hypercalcemia: suspected QUERY TEXT: PHYSICIAN'S DOCUMENTATION REQUEST Date of Query: 10/03/2023 09:31 AM EDT Patient Name: Crystal Simms Admit Date: 10/01/2023 Dear Mitchell Mccord, A review of the medical record indicates additional documentation may be needed. Please review below and update the documentation accordingly. Clinical Indicators: LAB FINDINGS: calcium 10.5 H 8.7 Based on the above, is there a diagnosis that correlates with the above labs: Hypercalcemia resolved, possible, suspected Labs indicate a diagnosis of (please specify) Other (explain) Clinically unable to determine (explain) Thank you, Deepthi Elkins, CCS, CDIS Use of terms such as suspected, likely, concern for, or probable (associated with a specific diagnosi s that is being evaluated, monitored, or treated as if it exists) are acceptable and can be coded in the inpatient se tting, when documented at the time of discharge. Please use your independent medical judgment in providing your response. THIS QUERY IS PART OF THE PERMANENT MEDICAL RECORD
--- NOTE | 2023-10-03 12:35 | P.PNIM_ITS ---
Subjective Subjective Date of Service: 10/03/23 Interval History: No acute issues overnight. Minimal response to ceftriaxone Review of Systems Unable to obtain Physical Exam 2 Vital Signs: Vital Signs: Last Vital Signs Temp 96.8 F 10/03/23 07:12 Pulse 71 10/03/23 07:12 Resp 14 10/03/23 07:12 BP 139/79 10/03/23 07:12 Pulse Ox 98 10/03/23 07:12 O2 Del Method Room Air 10/03/23 07:12 BMI result Body Mass Index 19.9 Const: Other: Awake mumbling incoherent Resp: Other: Clear to auscultation bilaterally no rales rhonchi or wheezes Cardio: Other: No S4; positive S1-S2; no S3 murmurs rubs or gallops GI: Other: Soft nontender nondistended normoactive bowel sounds Extrem: Other: No edema bilaterally Objective Data Active Medications Acetaminophen (Acetaminophen 325 Mg Tablet) 650 mg PO Q6H PRN PRN Reason: Pain, Mild (Pain Scale 1-3) Heparin Sodium (Porcine) (Heparin Sodium,Porcine 5,000 Unit/Ml Vial) 5,000 unit SUBCUT Q12H [facility] Last Admin: 10/03/23 05:46 Dose: 5,000 unit Documented By: JOHN Dextrose/Sodium Chloride (D51/2ns) 1,000 mls @ 100 mls/hr IVCONT .Q10H [facility] Last Admin: 10/03/23 09:36 Dose: 100 mls/hr Documented By: MARIELA Ceftriaxone Sodium 1 gm/ (Sodium Chloride) 50 mls @ 100 mls/hr IV Q24H [facility] Last Admin: 10/03/23 11:44 Dose: 100 mls/hr Documented By: MARIELA Lorazepam (Lorazepam 2 Mg/Ml Vial) 1 mg IVPUSH Q4H PRN PRN Reason: Restlessness Last Admin: 10/02/23 18:36 Dose: 1 mg Documented By: CARLOS Olanzapine (Olanzapine Odt 10 Mg Tab.Rapdis) 5 mg TRANSLINGU Q4H PRN PRN Reason: Psychosis Ondansetron HCl (Ondansetron Hcl 4 Mg/2 Ml Vial) 4 mg IVPUSH Q8H PRN PRN Reason: Nausea and Vomiting Quetiapine Fumarate (Quetiapine Fumarate 25 Mg Tablet) 25 mg PO TID [facility] Last Admin: 10/03/23 09:19 Dose: Not Given Documented By: MARIELA Non-Admin Reason: Patient Refused Senna (Sennosides 8.6 Mg Tablet) 17.2 mg PO BEDTIME PRN PRN Reason: Constipation Sodium Chloride (0.9 % Sodium Chloride Flush 3 Ml Syringe) 3 ml IVFLUSH QSHIFT [facility] Last Admin: 10/03/23 09:19 Dose: Not Given Documented By: MARIELA Non-Admin Reason: IV Running Labs 10/02/23 05:23 10/02/23 05:23 Assessment and Plan (1) Dementia: Status: Acute Plan 73 year old female with history of htn, hld admitted to [facility] from [facility] ED due to aggitation and delerium with work up negative for reversible medical causes of delerium. She continues to decline, not eating or drinking and continues to exhibit aggression/agitation related psychosis. 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 However, pt will be admitted to hospitalist service for further investigation into any reversible causes of acute delerium and ultiamtely advanced care planning with family if no reversible cause is identified. 1. Dementia with agitated behavior -extensive workup failed to demonstrate any acute cause for this behavior -follow response to empiric ceftriaxone 2.Hypoxia -likely secondary to poor waveform -workup unremarkable 3.Failure to thrive -secondary to end-stage dementia with agitated behavior -discussed at length with family; patient made DNR DNI at this time -will start bed search for long-term care facility closer to their home and fell mouth 4.Unspecified advanced dementia -per psychiatry, suspects terminal dementia -continue seroquel 25mg TID/Zyprexa 10mg daily -Ativan IV p.r.n... With good effect 5.Hypertension -bp reasonably controlled-not on antihypertensive agents -no aggressive therapy as family moving towards comfort measures dvt prophyalxis0 heparin full code Patient requires ongoing hospitalization to facilitate safe placement Quality Stroke Does the patient have a stroke diagnosis?: No VTE Prior VTE?: No VTE Risk Level:: Medical - moderate - high VTE Device Contraindication: Treatment Not Indicated VTE Drug Contraindication: N/A - Med Ordered
--- NOTE | 2023-10-03 13:16 | MHC.CM.PN ---
Addendum entered by Shavon Richardson 10/03/23 14:25: MILAD ROSE USES [facility], REFERRAL SENT FOR AN INFORMATIONAL MTG WITH FAMILY. Original Note: EMR REVIEWED AND PER MD ROUNDS, PT WILL BE TRIALED OFF 1:1 SITTER, MULTIPLE DENIALS FROM CENTERS IN [facility]. [facility] IN [place] IS FOLLOWING BUT WILL NEED PT OFF 1:1 FOR 48 HRS AND WILL NEED PT TO CONSISTENTLY EAT. [facility] UPDATED AND WOULD LIKE TO GET SOME INFORMATION REGARDING HOSPICE . CM REACHED OUT TO [facility] RO[facility] TO INQUIRE WHAT HOSPICE AGENCY THEY USE. AWAITING RESPONSE. CM WILL CONTINUE TO FOLLOW FOR ANY CHANGE IN DC PLAN/NEEDS.
[2023-10-03 15:30] VITALS: BP 166/94; PULSE 85; RESP 20; TEMP 36.2; O2SAT 98
[2023-10-03] MEDS: QUEtiapine Fumarate 25 MG TABLET PO (19:57)
[2023-10-03 23:39] VITALS: BP 152/76; PULSE 85; RESP 18; TEMP 36.3; O2SAT 96
[2023-10-04] MEDS: LORazepam 2 MG/ML VIAL 1 MG IVPUSH ×2 (00:50→17:53)
[2023-10-04] MEDS: Dextrose 5 % and 0.45 % NaCl 1,000 ML 100 ML IVCONT ×3 (01:09→21:13)
[2023-10-04] MEDS: Heparin Sodium,Porcine 5,000 UNIT/ML VIAL 5000 UNIT SUBCUT ×2 (05:20→17:59)
[2023-10-04 06:16] VITALS: BP 109/61; PULSE 52; RESP 16; TEMP 36; O2SAT 98
[2023-10-04 07:38] VITALS: BP 156/91; PULSE 74; RESP 17; TEMP 36.2; O2SAT 96
[2023-10-04] MEDS: cefTRIAXone sodium 1 GM in 0.9 % Sodium Chloride 50 ML IV (11:07)
--- NOTE | 2023-10-04 13:54 | MHC.CM.PN ---
CM SPOKE WITH [employer] TECHNICIAN ALEXANDRU ([phone]) WHO DID A 3 WAY PHONE INFORMATIONAL WITH PT'S BROTHER'S LAST AMNA. FAMILY WILL CONVENE AND MAKE A DECISION SOON POSSIBLE. CM SPOKE WITH BROTHER/HCP AMELIA WHO STATES HIS BROTHER WILL BE IN TODAY AND WILL SPEAK TO MD AND THEN WILL DECIDE ABOUT HOSPICE. [facility] UPDATED AND [facility] WILL CONTINUE TO FOLLOW FOR ANY CHANGES TO DC PLAN.
--- NOTE | 2023-10-04 15:02 | HO.PM.IMPN ---
Subjective Subjective Date of Service: 10/04/23 Interval History: No acute issues overnight. Behavior improved Review of Systems Unable to obtain Physical Exam Vital Signs: Vital Signs: Last Vital Signs Temp 97.1 F 10/04/23 07:38 Pulse 74 10/04/23 07:38 Resp 17 10/04/23 07:38 BP 156/91 H 10/04/23 07:38 Pulse Ox 96 10/04/23 07:38 O2 Del Method Room Air 10/04/23 07:38 BMI result Body Mass Index 19.9 Const: Other: Awake mumbling incoherent Resp: Other: Clear to auscultation bilaterally no rales rhonchi or wheezes Cardio: Other: No S4; positive S1-S2; no S3 murmurs rubs or gallops GI: Other: Soft nontender nondistended normoactive bowel sounds Extrem: Other: No edema bilaterally Objective Data Active Medications Acetaminophen (Acetaminophen 325 Mg Tablet) 650 mg PO Q6H PRN PRN Reason: Pain, Mild (Pain Scale 1-3) Heparin Sodium (Porcine) (Heparin Sodium,Porcine 5,000 Unit/Ml Vial) 5,000 unit SUBCUT Q12H [facility] Last Admin: 10/04/23 05:20 Dose: 5,000 unit Documented By: LILIAN Comments: downtime Ceftriaxone Sodium 1 gm/ (Sodium Chloride) 50 mls @ 100 mls/hr IV Q24H [facility] Last Infusion: 10/04/23 11:57 Dose: Infused Documented By: ALEX Dextrose/Sodium Chloride (D51/2ns) 1,000 mls @ 100 mls/hr IVCONT .Q10H [facility] Last Admin: 10/04/23 11:08 Dose: 100 mls/hr Documented By: ALEX Lorazepam (Lorazepam 2 Mg/Ml Vial) 1 mg IVPUSH Q4H PRN PRN Reason: Restlessness Last Admin: 10/04/23 00:50 Dose: 1 mg Documented By: LILIAN Olanzapine (Olanzapine Odt 10 Mg Tab.Rapdis) 5 mg TRANSLINGU Q4H PRN PRN Reason: Psychosis Ondansetron HCl (Ondansetron Hcl 4 Mg/2 Ml Vial) 4 mg IVPUSH Q8H PRN PRN Reason: Nausea and Vomiting Quetiapine Fumarate (Quetiapine Fumarate 25 Mg Tablet) 25 mg PO TID [facility] Last Admin: 10/04/23 15:01 Dose: Not Given Documented By: ALEX Non-Admin Reason: Patient Refused Senna (Sennosides 8.6 Mg Tablet) 17.2 mg PO BEDTIME PRN PRN Reason: Constipation Sodium Chloride (0.9 % Sodium Chloride Flush 3 Ml Syringe) 3 ml IVFLUSH QSHIFT [facility] Last Admin: 10/04/23 14:59 Dose: Not Given Documented By: ALEX Non-Admin Reason: IV Running Labs 10/02/23 05:23 10/02/23 05:23 Assessment and Plan (1) Dementia: Status: Acute (2) Failure to thrive in adult: Status: Acute Plan 73 year old female with history of htn, hld admitted to psychiatric from [facility] ED due to aggitation and delerium with work up negative for reversible medical causes of delerium. She continues to decline, not eating or drinking and continues to exhibit aggression/agitation related psychosis. 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 However, pt will be admitted to hospitalist service for further investigation into any reversible causes of acute delerium and ultiamtely advanced care planning with family if no reversible cause is identified. 1. Dementia with agitated behavior -extensive workup failed to demonstrate any acute cause for this behavior -follow response to empiric ceftriaxone 2.Hypoxia -likely secondary to poor waveform -workup unremarkable 3.Failure to thrive -secondary to end-stage dementia with agitated behavior -discussed at length with family; patient made DNR DNI at this time -will start bed search for long-term care facility closer to their home and fell mouth 4.Unspecified advanced dementia -per psychiatry, suspects terminal dementia -continue seroquel 25mg TID/Zyprexa 10mg daily -Ativan IV p.r.n... With good effect 5.Hypertension -bp reasonably controlled-not on antihypertensive agents -no aggressive therapy as family moving towards comfort measures dvt prophyalxis0 heparin full code Patient requires ongoing hospitalization to facilitate safe placement Quality Stroke Does the patient have a stroke diagnosis?: No VTE Prior VTE?: No VTE Risk Level:: Medical - moderate - high VTE Device Contraindication: Treatment Not Indicated VTE Drug Contraindication: N/A - Med Ordered
[2023-10-04 15:20] VITALS: BP 137/68; PULSE 66; RESP 20; TEMP 36.4; O2SAT 100
[2023-10-04 19:52] VITALS: BP 132/71; PULSE 80; RESP 18; TEMP 36; O2SAT 94
[2023-10-04] MEDS: 0.9 % Sodium Chloride Flush 3 ML SYRINGE IVFLUSH (20:09)
[2023-10-04] MEDS: QUEtiapine Fumarate 25 MG TABLET PO (20:09)
[2023-10-04 23:20] VITALS: BP 132/87; PULSE 71; RESP 16; TEMP 36.1; O2SAT 96
[2023-10-05] MEDS: Heparin Sodium,Porcine 5,000 UNIT/ML VIAL 5000 UNIT SUBCUT ×2 (05:58→16:50)
[2023-10-05 07:29] VITALS: BP 126/60; PULSE 68; RESP 18; TEMP 36.3; O2SAT 96
[2023-10-05] MEDS: Dextrose 5 % and 0.45 % NaCl 1,000 ML 100 ML IVCONT ×2 (07:49→16:51)
[2023-10-05] MEDS: QUEtiapine Fumarate 25 MG TABLET PO ×3 (09:44→19:51)
[2023-10-05] MEDS: LORazepam 2 MG/ML VIAL 1 MG IVPUSH (09:53)
[2023-10-05 10:06] VITALS: BMI 19.9
--- NOTE | 2023-10-05 10:13 | MHC.CLN ---
NUTRITION DIET=GROUND WITH SUPPLEMENTS. MAGIC CUP TID (870 KCALS, 27 G PROTEIN) AND ENSURE TID (1050 KCALS, 60 G PROTEIN) VERY POOR INTAKE. HOSPICE AND LTC BEING DISCUSSED WITH FAMILY. DONNELL=13. NO OPEN AREAS. FOLLOW FOR DIET, INTAKE, AND PLAN OF CARE. SEE CLINICAL NUTRITION ASSESSMENT.
[2023-10-05] MEDS: cefTRIAXone sodium 1 GM in 0.9 % Sodium Chloride 50 ML IV (12:02)
--- NOTE | 2023-10-05 12:35 | MHC.CM.PN ---
Addendum entered by Shavon Richardson 10/05/23 15:48: [facility] NURSE CHARLES IN TO SCREEN. FAMILY UPDATED. PCP [facility] [employer] SCIENTIST PER BROTHER. Original Note: CM SPOKE WITH FAMILY THIS AM AND THEY HAVE DECIDED TO MOVE FORWARD WITH HOSPICE SERVICES. [facility] WAS UPDATED AND CAN OFFER A BED FOR 10/08/23. ALEXANDRU FROM [facility] [place]ATED AND WILL NEED TO SCREEN IN PERSON ONCE THE PT IS ADMITTED TO [facility] ON 10/07. WILL NEED A [facility], NOTIFIED. BLS TRANSPORT BOOKED FOR 10/08/23 AT 10 AM VIA [employer]. MED REC FORM COMPLETED AND PUT ON CHART. CM WILL CONTINUE TO FOLLOW FOR ANY CHANGE IN DC NEEDS/PLAN
--- NOTE | 2023-10-05 12:52 | P.PNIM_ITS ---
Subjective Subjective Date of Service: 10/05/23 Interval History: No acute issues overnight. Improved with medication; sitter DC Review of Systems Unable to obtain Physical Exam 2 Vital Signs: Vital Signs: Last Vital Signs Temp 97.4 F 10/05/23 07:29 Pulse 68 10/05/23 07:29 Resp 18 10/05/23 07:29 BP 126/60 10/05/23 07:29 Pulse Ox 96 10/05/23 07:29 O2 Del Method Room Air 10/05/23 07:29 BMI result Body Mass Index 19.9 Const: Other: Awake mumbling incoherent Resp: Other: Clear to auscultation bilaterally no rales rhonchi or wheezes Cardio: Other: No S4; positive S1-S2; no S3 murmurs rubs or gallops GI: Other: Soft nontender nondistended normoactive bowel sounds Extrem: Other: No edema bilaterally Objective Data Active Medications Acetaminophen (Acetaminophen 325 Mg Tablet) 650 mg PO Q6H PRN PRN Reason: Pain, Mild (Pain Scale 1-3) Heparin Sodium (Porcine) (Heparin Sodium,Porcine 5,000 Unit/Ml Vial) 5,[address] [facility] Last Admin: 10/05/23 05:58 Dose: 5,000 unit Documented By: ANIL Ceftriaxone Sodium 1 gm/ (Sodium Chloride) 50 mls @ 100 mls/hr IV Q24H [facility] Last Infusion: 10/05/23 12:33 Dose: Infused Documented By: ALEX Dextrose/Sodium Chloride (D51/2ns) 1,000 mls @ 100 mls/hr IVCONT .Q10H [facility] Last Admin: 10/05/23 07:49 Dose: 100 mls/hr Documented By: ALEX Lorazepam (Lorazepam 2 Mg/Ml Vial) 1 mg IVPUSH Q4H PRN PRN Reason: Restlessness Last Admin: 10/05/23 09:53 Dose: 1 mg Documented By: ALEX Olanzapine (Olanzapine Odt 10 Mg Tab.Rapdis) 5 mg TRANSLINGU Q4H PRN PRN Reason: Psychosis Ondansetron HCl (Ondansetron Hcl 4 Mg/2 Ml Vial) 4 mg IVPUSH Q8H PRN PRN Reason: Nausea and Vomiting Quetiapine Fumarate (Quetiapine Fumarate 25 Mg Tablet) [address] [facility] Last Admin: 10/05/23 09:44 Dose: 25 mg Documented By: ALEX Senna (Sennosides 8.6 Mg Tablet) 17.2 mg PO BEDTIME PRN PRN Reason: Constipation Sodium Chloride (0.9 % Sodium Chloride Flush 3 Ml Syringe) [address] [facility] Last Admin: 10/05/23 07:47 Dose: Not Given Documented By: ALEX Non-Admin Reason: IV Running Labs 10/02/23 05:23 10/02/23 05:23 Assessment and Plan (1) Rapidly progressive dementia: Status: Acute Plan 73 year old female with history of htn, hld admitted [facility] ED due to aggitation and delerium with work up negative for reversible medical causes of delerium. She continues to decline, not eating or drinking and continues to exhibit aggression/agitation related psychosis. 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 Workup failed to demonstrate any acute medical issues to explain behavior 1. Terminal dementia with agitated behavior Extensive workup failed to demonstrate any acute cause for this behavior; given her clinical presentation of refusing meds and fluids and nutrition hospice would be appropriate as the likelihood of her improving is slim. If she continues to refuse all oral intake... Comfort measures would be the most appropriate and respectful course. Discussed with sons who are all in agreement. At this stage of her dementia, comfort would be simpson. This would be best achieved in a hospice setting. Exhibiting good response to Ativan at this time. -will schedule Ativan 1 mg p.o. t.i.d. with IV backup if refuses 2.Failure to thrive -secondary to end-stage dementia with agitated behavior -discussed at length with family; patient made DNR DNI at this time -move toward comfort care. Heparin DNR DNI Patient requires ongoing hospitalization to facilitate hospice admission Quality Stroke Does the patient have a stroke diagnosis?: No VTE Prior VTE?: No VTE Risk Level:: Medical - moderate - high VTE Device Contraindication: Treatment Not Indicated VTE Drug Contraindication: N/A - Med Ordered
[2023-10-05 16:10] VITALS: BP 139/95; PULSE 88; RESP 18; TEMP 36.2; O2SAT 95
[2023-10-05] MEDS: LORazepam 1 MG TABLET PO (19:51)
[2023-10-05 20:47] VITALS: BP 144/67; PULSE 63; RESP 18; TEMP 36.4; O2SAT 99
[2023-10-05 23:32] VITALS: BP 138/75; PULSE 63; RESP 16; TEMP 36; O2SAT 98
[2023-10-06] VITALS: RESP 16
[2023-10-06 01:30] VITALS: BP 130/69; PULSE 68; RESP 16; O2SAT 98
[2023-10-06] MEDS: LORazepam 1 MG TABLET PO ×3 (01:44→17:18)
[2023-10-06] MEDS: Heparin Sodium,Porcine 5,000 UNIT/ML VIAL 5000 UNIT SUBCUT (06:06)
[2023-10-06 07:26] VITALS: BP 137/75; PULSE 71; RESP 16; TEMP 36.3; O2SAT 96
[2023-10-06] MEDS: QUEtiapine Fumarate 25 MG TABLET PO ×3 (08:26→20:16)
--- NOTE | 2023-10-06 12:01 | P.PNIM_ITS ---
Subjective Subjective Date of Service: 10/06/23 Interval History: unable to obtain ROS due to altered mental status Review of Systems Review of Systems: Yes Unobtainable due to mental status Physical Exam 2 Vital Signs: Vital Signs: Last Vital Signs Temp 97.3 F 10/06/23 07:26 Pulse 71 10/06/23 07:26 Resp 16 10/06/23 07:26 BP 137/75 10/06/23 07:26 Pulse Ox 96 10/06/23 07:26 O2 Del Method Room Air 10/06/23 07:26 BMI result Body Mass Index 19.9 Gen: in no acute distress HEENT: sclera anicteric, moist mucus membranes Neck: supple Lungs: clear to auscultation bilaterally Heart: regular rate and rhythm, no murmurs Abd: soft, non-tender, non-distended Ext: no edema Skin: warm/well-perfused Neuro: alert, unable to assess orientation Psych: impaired insight Objective Data Active Medications Acetaminophen (Acetaminophen 325 Mg Tablet) 650 mg PO Q6H PRN PRN Reason: Pain, Mild (Pain Scale 1-3) Lorazepam (Lorazepam 2 Mg/Ml Vial) 1 mg IM Q6H PRN PRN Reason: agitation Lorazepam (Lorazepam 1 Mg Tablet) 1 mg PO Q6H [facility] Last Admin: 10/06/23 06:13 Dose: 1 mg Documented By: MELODY Olanzapine (Olanzapine Odt 10 Mg Tab.Rapdis) 5 mg TRANSLINGU Q4H PRN PRN Reason: Psychosis Ondansetron HCl (Ondansetron Hcl 4 Mg/2 Ml Vial) 4 mg IVPUSH Q8H PRN PRN Reason: Nausea and Vomiting Quetiapine Fumarate (Quetiapine Fumarate 25 Mg Tablet) 25 mg PO TID [facility] Last Admin: 10/06/23 08:26 Dose: 25 mg Documented By: ELISA Senna (Sennosides 8.6 Mg Tablet) 17.2 mg PO BEDTIME PRN PRN Reason: Constipation Sodium Chloride (0.9 % Sodium Chloride Flush 3 Ml Syringe) 3 ml IVFLUSH QSHIFT [facility] Last Admin: 10/06/23 08:26 Dose: Not Given Documented By: ELISA Non-Admin Reason: No Access Labs 10/02/23 05:23 10/02/23 05:23 Assessment and Plan (1) Rapidly progressive dementia: Status: Acute Plan d6 73yo F with HTN, HLD admitted to geriatric psychiatry from [facility] ED due to agitation + delirium; no reversible causes of delirium. Continued cognitive decline and refusing most POs; exhibiting aggression, agitation, and psychosis. Per psychiatrist, suspect terminal dementia. Pt transferred to medical floor to facilitate placement. terminal dementia with behavioral agitation FTT - plan hospice as per prior discussion with Dr Mccord. Scheduled + prn lorazepam, scheduled quetiapine + prn olanzapine - [facility] [place] [facility] [place]atively scheduled for 10/08/23 In my clinical judgment, the patient requires continued inpatient hospitalization for the following reasons: placement Total time managing care of this patient today: 25 minutes. Quality Stroke Does the patient have a stroke diagnosis?: No VTE Prior VTE?: No VTE Risk Level:: Medical - moderate - high VTE Device Contraindication: Treatment Not Indicated VTE Drug Contraindication: N/A - Med Ordered
[2023-10-06 15:51] VITALS: PULSE 64; RESP 16; TEMP 36.8; O2SAT 96
[2023-10-06 23:04] VITALS: BP 132/67; PULSE 78; RESP 16; TEMP 36; O2SAT 98
[2023-10-07 07:06] VITALS: BP 152/61; PULSE 68; RESP 14; TEMP 36.6; O2SAT 98
[2023-10-07] MEDS: LORazepam 1 MG TABLET PO ×3 (07:26→19:14)
[2023-10-07] MEDS: QUEtiapine Fumarate 25 MG TABLET PO ×3 (08:12→20:15)
--- NOTE | 2023-10-07 11:06 | P.PNIM_ITS ---
Subjective Subjective Date of Service: 10/07/23 Interval History: no new issues Review of Systems Review of Systems: Yes Unobtainable due to mental status Physical Exam 2 Vital Signs: Vital Signs: Last Vital Signs Temp 97.8 F 10/07/23 07:06 Pulse 68 10/07/23 07:06 Resp 14 10/07/23 07:06 BP 152/61 H 10/07/23 07:06 Pulse Ox 98 10/07/23 07:06 O2 Del Method Room Air 10/07/23 07:06 BMI result Body Mass Index 19.9 Gen: in no acute distress HEENT: sclera anicteric, moist mucus membranes Neck: supple Lungs: clear to auscultation bilaterally Heart: regular rate and rhythm, no murmurs Abd: soft, non-tender, non-distended Ext: no edema Skin: warm/well-perfused Neuro: alert, unable to assess orientation Psych: impaired insight Objective Data Active Medications Acetaminophen (Acetaminophen 325 Mg Tablet) 650 mg PO Q6H PRN PRN Reason: Pain, Mild (Pain Scale 1-3) Lorazepam (Lorazepam 2 Mg/Ml Vial) 1 mg IM Q6H PRN PRN Reason: agitation Lorazepam (Lorazepam 1 Mg Tablet) 1 mg PO Q6H [facility] Last Admin: 10/07/23 07:26 Dose: 1 mg Documented By: ELISA Olanzapine (Olanzapine Odt 10 Mg Tab.Rapdis) 5 mg TRANSLINGU Q4H PRN PRN Reason: Psychosis Ondansetron HCl (Ondansetron Hcl 4 Mg/2 Ml Vial) 4 mg IVPUSH Q8H PRN PRN Reason: Nausea and Vomiting Quetiapine Fumarate (Quetiapine Fumarate 25 Mg Tablet) 25 mg PO TID [facility] Last Admin: 10/07/23 08:12 Dose: 25 mg Documented By: ELISA Senna (Sennosides 8.6 Mg Tablet) 17.2 mg PO BEDTIME PRN PRN Reason: Constipation Sodium Chloride (0.9 % Sodium Chloride Flush 3 Ml Syringe) 3 ml IVFLUSH QSHIFT [facility] Last Admin: 10/07/23 07:28 Dose: Not Given Documented By: ELISA Non-Admin Reason: No Access Labs 10/02/23 05:23 10/02/23 05:23 Assessment and Plan (1) Rapidly progressive dementia: Status: Acute Plan d7 73yo F with HTN, HLD admitted to geriatric psychiatry from [facility] ED due to agitation + delirium; no reversible causes of delirium. Continued cognitive decline and refusing most POs; exhibiting aggression, agitation, and psychosis. Per psychiatrist, suspect terminal dementia. Pt transferred to medical floor to facilitate placement. terminal dementia with behavioral agitation FTT - plan hospice as per prior discussion with Dr Mccord. Scheduled + prn lorazepam, scheduled quetiapine + prn olanzapine - accepted to [facility] [place] with transfer tentatively scheduled for 10/08/23 In my clinical judgment, the patient requires continued inpatient hospitalization for the following reasons: placement Total time managing care of this patient today: 25 minutes. Quality Stroke Does the patient have a stroke diagnosis?: No VTE Prior VTE?: No VTE Risk Level:: Medical - moderate - high VTE Device Contraindication: Treatment Not Indicated VTE Drug Contraindication: N/A - Med Ordered
[2023-10-07 15:15] VITALS: BP 133/76; PULSE 88; RESP 16; TEMP 36.6; O2SAT 96
--- NOTE | 2023-10-07 15:27 | PC.NURSE ---
Addendum entered by Dulce Maria Whittington RN 10/07/23 15:36: ice pack placed as advised by Original Note: Right lower arm red swollen and hot to touch,Dr. Pryor notified,will monitor
[2023-10-07 23:56] VITALS: BP 133/82; PULSE 87; RESP 16; TEMP 36.2; O2SAT 95
[2023-10-08 07:08] VITALS: BP 112/64; PULSE 58; RESP 17; TEMP 36.1; O2SAT 98
[2023-10-08] MEDS: LORazepam 1 MG TABLET PO ×2 (07:23→12:07)
[2023-10-08] MEDS: QUEtiapine Fumarate 25 MG TABLET PO (07:23)
--- NOTE | 2023-10-08 09:25 | P.DS_ITS ---
DS: Providers Provider Date of Service: 10/08/23 Date of admission: 10/01/23 18:01 Date of discharge: 10/08/23 Primary care physician: Unknown Physician Consults: 10/01/23 17:46 Consult for Sitter Routine Reason for consultation: aggitation/aggression, will try to pull out iv's DS: Diagnosis Discharge Diagnosis (1) Rapidly progressive dementia: Status: Acute (2) Failure to thrive in adult: Status: Acute DS: Summary Hospital Course Hospital Course: from admission H+P by psychiatrist Homer Hough, 09/30/23: The patient is a 73-year-old female transferred from [facility] for continuation of care. According to the crisis assessment, the patient was brought from her home to the emergency room of [facility] since she was hypotensive. The patient carries a diagnosis of dementia and hypertension and she was on metoprolol at certain point her pulse was below 45 and an accidental overdose of metoprolol was suspected. She was initially medically admitted, medically cleared and assessed by crisis since the patient was confused with episodes of agitation. She was presented to our team and transferred here for continuation of care. While we did the doctor to doctor communication, the doctor of [facility] reported that Psychiatry was involved in that facility and they suggested Seroquel 25 mg p.o. t.i.d. to target psychosis and restlessness and p.r.n. Zyprexa. Metoprolol was discontinued. The patient was transferred to this facility by ambulance and on admission the patient was severely confused agitated unable to provide any details and refusing to cooperate. It needed 6 staff members to transfer her to the unit. The patient was very agitated she needed to be chemically restrain with Zyprexa p.o. and Ativan IM. The patient was a very poor historian unable to provide any details confused. The initial medical team assessed her and he was medically cleared. We will try to gather more collateral information since the patient is a very poor historian unable to provide any details. We kept her on Seroquel 25 p.o. t.i.d. and Zyprexa Zydis p.r.n. agitation. Past Psychiatric History: Unknown apparently the patient carries a diagnosis of dementia no evidence of prior psychiatric admissions. Medical Evaluation Reviewed: Yes and from hospitalist H+P by hospitalist DESI Rosenbaum, 10/01/23: 73 year old female with history of htn, hld admitted to [facility] from [facility] ED due to aggitation and delerium. While in the ED, work up was performed to rule out medical causes of acute delerium. Head ct negative for acute intracranial abnormalality, CTA head/neck negative for LVO or hemodynamically significant stenosis> CXr negative for focal consolidation. EKG shows sinus tach, rate 103, with incomplete RBBB, non specific t wave abnormality and borderline qtc at 490. Multiple UA collections negative for infection. VBG negative for any hypercapnia that could be contributing to ams. Renal function and lytes normal. Since arrival to the unit, patient has continued to decline. Has not been eating or drinking per nursing report. Has been refusing medications. Has required chemical restraint due to agitation and aggression towards staff. Seen in consult by this provider on 09/28 and again today without any change in clinical presentation. Vital signs since arrival were significant for intermittent tachypnea, though has not been tachypneic in over 24 hours and breathing on exam is noted to be unlabored. Nursing reported hypoxia of 72% on RA last night and then this morning oximetry was not able to be accurately read. On exam briefly obtained sat of 93% then 89% but otherwise was not reading. Radial pulses noted to be weak but equal. Extremities warm. No cyanosis observed. O2 sats until yesterday evening 97%. Discussed with psychiatrist who questions terminal dementia. He does report that prior to arrival to [facility] patient was ambulatory though has had underlying dementia. She will be transferred to the medical floor for further evaluation of any reversible medical causes leading to acute delerium though again these had not been identified during [facility] evaluation and presentation has not changed, vs terminal dementia and further discussion/advanced care planning with family. 73yo F with HTN, HLD admitted to geriatric psychiatry from [facility] ED due to agitation + delirium; no reversible causes of delirium. Continued cognitive decline and refusing most POs; exhibiting aggression, agitation, and psychosis. Per psychiatrist, suspect terminal dementia. Pt transferred to medical floor to facilitate placement. Per discussion with family, patient transitioned to hospice care and started on lorazepam and olanzapine. She was transferred to [facility] for hospice services through [facility]. Time Attestation Discharge Coordination Time (in mins): 35 Quality: Safe Use of Opioids Does Pt have an Active Cancer Diagnosis on the Problem List?: No Quality: Stroke Does the patient have a stroke diagnosis?: No Physical Exam Vital Signs: Vital Signs: Last Vital Signs Temp 97 F 10/08/23 07:08 Pulse 58 10/08/23 07:08 Resp 17 10/08/23 07:08 BP 112/64 10/08/23 07:08 Pulse Ox 98 10/08/23 07:08 O2 Del Method Room Air 10/08/23 07:08 BMI result Body Mass Index 19.9 Gen: in no acute distress HEENT: sclera anicteric, moist mucus membranes Neck: supple Lungs: clear to auscultation bilaterally Heart: regular rate and rhythm, no murmurs Abd: soft, non-tender, non-distended Ext: no edema Skin: warm/well-perfused Neuro: alert, unable to assess orientation Psych: impaired insight DS: Data Data Completed and Pending Completed studies during hospitalization [Text1]: Laboratory Results WBC 5.0 X10*3/uL (4.8-10.8) 10/02/23 05:23 RBC 4.36 X10*6/uL (4.20-5.50) 10/02/23 05:23 Hgb 12.6 g/dl (12.0-16.0) 10/02/23 05:23 Hct 38.7 % (37.0-47.0) 10/02/23 05:23 MCV 88.8 fL (80.0-98.0) 10/02/23 05:23 MCH 28.9 pg (27.0-33.0) 10/02/23 05:23 MCHC 32.6 g/dl (31.0-35.0) 10/02/23 05:23 RDW 13.7 % (11.0-16.0) 10/02/23 05:23 Plt Count 260 X10*3/uL (160-400) 10/02/23 05:23 MPV 10.0 fL (9.4-12.3) 10/02/23 05:23 Immature Gran % (Auto) 0.2 % (0.0-0.4) 10/02/23 05:23 Neut % (Auto) 52.2 % (45-73) 10/02/23 05:23 Lymph % (Auto) 32.3 % (20-40) 10/02/23 05:23 Inyo % (Auto) 9.7 % (2-11) 10/02/23 05:23 Eos % (Auto) 4.8 % (0-4) H 10/02/23 05:23 Baso % (Auto) 0.8 % (0-2) 10/02/23 05:23 Lymph # (Auto) 1.6 X10*3/uL (1.2-4.9) 10/02/23 05:23 Inyo # (Auto) 0.5 X10*3/uL (0.1-1.2) 10/02/23 05:23 Eos # (Auto) 0.2 X10*3/uL (0.0-0.4) 10/02/23 05:23 Baso # (Auto) 0.0 X10*3/uL (0.0-0.2) 10/02/23 05:23 Abs Immat Gran (auto) 0.01 X10*3/uL (0.00-0.03) 10/02/23 05:23 Absolute Neuts (auto) 2.6 x10*3/uL (2.0-8.3) 10/02/23 05:23 Absolute Nucleated RBC 0.000 X10*3/uL (0.0-0.012) 10/02/23 05:23 Nucleated RBC % (auto) 0.0 /100WBC (0.0-0.2) 10/02/23 05:23 VBG pH 7.55 (7.32-7.43) H 10/01/23 18:40 VBG pCO2 25 mmHg 10/01/23 18:40 VBG pO2 28 mmHg 10/01/23 18:40 VBG HCO3 22 mmol/L (22-26) 10/01/23 18:40 VBG O2 Saturation 46.0 % 10/01/23 18:40 VBG Base Excess 2.0 mmol/L 10/01/23 18:40 Sodium 143 mmol/L (135-145) 10/02/23 05:23 Potassium 3.6 mmol/L (3.3-5.1) 10/02/23 05:23 Chloride 113 mmol/L (96-108) H 10/02/23 05:23 Carbon Dioxide 22 mmol/L (22-29) 10/02/23 05:23 Anion Gap 12 (12-20) 10/02/23 05:23 BUN 26 mg/dL (9-16) H 10/02/23 05:23 Creatinine 0.71 mg/dL (0.5-1.4) 10/02/23 05:23 Estim Creat Clear Calc 61.5 10/02/23 05:23 Estimated GFR > 60 10/02/23 05:23 Random Glucose 115 mg/dL (60-115) 10/02/23 05:23 Calcium 8.7 mg/dL (8.4-10.2) D 10/02/23 05:23 Total Bilirubin 1.1 mg/dL (0.0-1.0) H 10/01/23 18:38 AST 17 U/L (5-31) 10/01/23 18:38 ALT 14 U/L (0-31) 10/01/23 18:38 Alkaline Phosphatase 105 U/L (39-117) 10/01/23 18:38 Ammonia 17 umol/L (13-55) 10/01/23 18:38 Troponin I High Sens < 2.7 ng/L (<3.5-17.0) 10/01/23 18:38 B-Natriuretic Peptide < 10 pg/mL (<100) 10/01/23 18:38 Total Protein 8.2 g/dL (6.5-8.0) H 10/01/23 18:38 Albumin 4.6 g/dL (3.5-5.0) 10/01/23 18:38 TSH 1.57 uIU/mL (0.32-4.0) 10/01/23 18:38 Urine Color Dark Yellow 10/01/23 22:20 Urine Appearance Cloudy 10/01/23 22:20 Urine pH 7.0 (5.0-9.0) 10/01/23 22:20 Ur Specific Hughson >= 1.030 (1.005-1.025) H 10/01/23 22:20 Urine Protein Negative mg/dL (Neg-Trace) 10/01/23 22:20 Urine Glucose (UA) Negative mg/dL (Negative) 10/01/23 22:20 Urine Ketones 15 mg/dL (Negative) 10/01/23 22:20 Urine Blood Negative (Negative) 10/01/23 22:20 Urine Nitrite Negative (Negative) 10/01/23 22:20 Ur Leukocyte Esterase Negative (Negative) 10/01/23 22:20 Impressions Chest CTA 10/01/23 20:47 IMPRESSION: No evidence of pulmonary embolus. VTE: negative Abdomen/Pelvis CT 10/01/23 20:51 IMPRESSION: No acute findings. Mild constipation and diverticulosis. Large uterine calcification probably representing a fibroid. Small nonobstructing bilateral renal stones. Question mild fold thickening of the proximal stomach. Fleischner guidelines were followed. Head CT 10/01/23 20:51 IMPRESSION: Motion degraded examination. Within limitations of motion artifact, no evidence of acute intracranial abnormality including hemorrhage, mass effect, hydrocephalus, or acute territorial edematous infarction. If there is persistent clinical concern for acute BOTTLE DEALER pathology, consider repeat CT or MRI. Discharge Plan Discharge Anticipated Discharge Date/Time: 10/08/23 09:19 Patient Disposition: Hospice - Medical Facility Discharge Diagnosis: advanced dementia Referrals: Physician,Unknown J [Primary Care Provider] - 1 Week Discharge Medications: New olanzapine 10 mg Tablet,Disintegrating 5 mg translingual Q4H PRN (Reason: Psychosis) Qty: 30 0RF quetiapine 25 mg Tablet 25 mg PO TID Qty: 90 0RF lorazepam [Lorazepam Intensol] 2 mg/mL concentrate 1 mg PO Q6H PRN (Reason: anxiety) Qty: 30 0RF Discontinued quetiapine 25 mg Tablet 25 mg PO TID acetaminophen 325 mg Tablet 650 mg PO Q6H PRN (Reason: Mild Pain (Scale Score 1-4)) trazodone 50 mg Tablet 50 mg PO BEDTIME PRN (Reason: Insomnia) magnesium hydroxide [Milk of Magnesia] 400 mg/5 mL Suspension 30 ml PO DAILY PRN (Reason: Constipation) olanzapine [Zyprexa Zydis] 10 mg Tablet,Disintegrating 5 mg PO Q4H PRN (Reason: Psychosis) hydroxyzine HCl 25 mg Tablet 25 mg PO Q6H PRN (Reason: Anxiety) alum-mag hydroxide-simeth [Maalox] 200-200-20 mg/5 mL Suspension 30 ml PO DAILY PRN (Reason: Heartburn) Rx Instructions: administer between meals and at bedtime Discharge Orders: Discharge Order (Routine); Ordered 10/08/23 Ordered By: Riky Pryor Diet: Advance to usual diet Activity on Discharge: As tolerated Stand Alone Forms: Patient Portal Discharge page Print Language: Maori Care Plan Goals: hospice care Health Concerns: advanced dementia Plan of Treatment: continue quetiapine; olanzapine as needed for agitation lorazepam as needed for anxiety transfer to [facility] for hospice services through [facility] Assessment: See Discharge Summary.
--- NOTE | 2023-10-08 10:21 | PC.NURSE ---
d/c on hold pending SNF.
--- NOTE | 2023-10-08 10:23 | P.PNIM_ITS ---
Subjective Subjective Date of Service: 10/08/23 Interval History: no new events Review of Systems Review of Systems: Yes Unobtainable due to mental status Physical Exam 2 Vital Signs: Vital Signs: Last Vital Signs Temp 97 F 10/08/23 07:08 Pulse 58 10/08/23 07:08 Resp 17 10/08/23 07:08 BP 112/64 10/08/23 07:08 Pulse Ox 98 10/08/23 07:08 O2 Del Method Room Air 10/08/23 07:08 BMI result Body Mass Index 19.9 Gen: in no acute distress HEENT: sclera anicteric, moist mucus membranes Neck: supple Lungs: clear to auscultation bilaterally Heart: regular rate and rhythm, no murmurs Abd: soft, non-tender, non-distended Ext: no edema Skin: warm/well-perfused Neuro: alert, unable to assess orientation Psych: impaired insight Objective Data Active Medications Acetaminophen (Acetaminophen 325 Mg Tablet) 650 mg PO Q6H PRN PRN Reason: Pain, Mild (Pain Scale 1-3) Lorazepam (Lorazepam 2 Mg/Ml Vial) 1 mg IM Q6H PRN PRN Reason: agitation Lorazepam (Lorazepam 1 Mg Tablet) 1 mg PO Q6H [facility] Last Admin: 10/08/23 07:23 Dose: 1 mg Documented By: NATHAN Olanzapine (Olanzapine Odt 10 Mg Tab.Rapdis) 5 mg TRANSLINGU Q4H PRN PRN Reason: Psychosis Ondansetron HCl (Ondansetron Hcl 4 Mg/2 Ml Vial) 4 mg IVPUSH Q8H PRN PRN Reason: Nausea and Vomiting Quetiapine Fumarate (Quetiapine Fumarate 25 Mg Tablet) 25 mg PO TID [facility] Last Admin: 10/08/23 07:23 Dose: 25 mg Documented By: NATHAN Senna (Sennosides 8.6 Mg Tablet) 17.2 mg PO BEDTIME PRN PRN Reason: Constipation Sodium Chloride (0.9 % Sodium Chloride Flush 3 Ml Syringe) 3 ml IVFLUSH QSHIFT [facility] Last Admin: 10/08/23 07:23 Dose: Not Given Documented By: NATHAN Non-Admin Reason: no iv Labs 10/02/23 05:23 10/02/23 05:23 Assessment and Plan (1) Rapidly progressive dementia: Status: Acute Plan d8 73yo F with HTN, HLD admitted to geriatric psychiatry from [facility] ED due to agitation + delirium; no reversible causes of delirium. Continued cognitive decline and refusing most POs; exhibiting aggression, agitation, and psychosis. Per psychiatrist, suspect terminal dementia. Pt transferred to medical floor to facilitate placement. terminal dementia with behavioral agitation FTT - plan hospice as per prior discussion with Dr Mccord. Scheduled + prn lorazepam, scheduled quetiapine + prn olanzapine - [place] [facility] [place] my clinical judgment, the patient requires continued inpatient hospitalization for the following reasons: placement Total time managing care of this patient today: 25 minutes. Quality Stroke Does the patient have a stroke diagnosis?: No VTE Prior VTE?: No VTE Risk Level:: Medical - moderate - high VTE Device Contraindication: Treatment Not Indicated VTE Drug Contraindication: N/A - Med Ordered
--- NOTE | 2023-10-08 12:01 | HO.HCP ---
Health Care Proxy Invocation Health Care Proxy Declaration: I, Riky Pryor , on the date cited below, have determined that, ____Crystal Simms , lacks the capacity to make or communicate, informed health care decision. This determination is made in accordance with accepted standards of medical judgment and pursuant to [place] 201[place], the [facility] Care Proxy Law. The cause, nature, extent and probable duration of the patient's inapacity are described below: Cause: advanced dementia Nature: progressive, severe Extent: progressive, severe Probable Duration of Patient's Incapacity: lifelong
--- NOTE | 2023-10-08 12:02 | PM.EVENT ---
Event Note Date of Service: 10/08/23 Event Note: Discussed with pt's HCP Nael Simms over the phone. Patient has advanced, terminal dementia and family is electing for SNF hospice placement. MOLST reviewed and filled out. Pt is to be DNR/DNI, no NIPPV, no transfer to hospital, no dialysis, no artificial nutrition, no artificial hydration. Time Spent With Patient Time: Total time managing care of this patient today ____ minutes.
--- NOTE | 2023-10-08 12:09 | MHC.CM.PN ---
Patient has been accepted at [facility]. She will receive hospice services from [facility]. They will start services this afternoon. 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
--- NOTE | 2023-10-08 12:54 | PC.NURSE ---
Plan d/c this afternoon to SNF.
--- NOTE | 2023-10-08 14:05 | MHC.CLN ---
F/U DIET=GROUND WITH SUPPLEMENTS. MAGIC CUP TID (870 KCALS, 27 G PROTEIN) AND ENSURE TID (1050 KCALS, 60 G PROTEIN) CONTINUES WITH VERY POOR INTAKE. PLAN FOR TRANSFER TO SNF TODAY. FOLLOW FOR DIET TOLERANCE AND INTAKE.
== END 2023-10-08 15:24 | disposition hospice, inpatient (51) | DRG 884 ==
PROVIDERS: Physician Assistant; Admitting Provider Hospitalist; PCP Nurse Practitioner Family; Visit Provider Family Medicine
DX: F03.92 Unspecified dementia, unspecified severity, with psychotic disturbance (principal); G93.41 Metabolic encephalopathy; Z68.1 Body mass index [BMI] 19.9 or less, adult; E87.0 Hyperosmolality and hypernatremia; F05 Delirium due to known physiological condition; E78.5 Hyperlipidemia, unspecified; Z66 Do not resuscitate; E83.52 Hypercalcemia; I10 Essential (primary) hypertension; R62.7 Adult failure to thrive; Z79.899 Other long term (current) drug therapy
CPT/HCPCS: 36415; 70450; 71275; 74176; 80048; 80053; 81003; 82140; 82803; 83880; 84443; 84484; 85025; J0696; J1644; J2060; J2359; Q9967

== ENCOUNTER → 2023-10-01 18:01 | Outpatient (BNV) | payer MEDICARE, SELFPAY | PROVIDERS: Admitting Provider Hospitalist; Visit Provider Physician Assistant | DX: F03.90 Unspecified dementia, unspecified severity, without behavioral disturbance, psychotic disturbance, mood disturbance, and anxiety (principal); R62.7 Adult failure to thrive | CPT/HCPCS: 99222; 99231; 99233; 99239; 99499 ==